=== PATIENT | male | born 1935 | race Caucasian/White ===

== ENCOUNTER 2016-10-28 09:07 | Observation (INO) | payer MEDICARE ==
[~2016-10-28] VITALS: Ht 177.8 cm; Wt 70.3 kg
[2016-10-28] VITALS (12 sets, daily range): BP systolic 99–132; BP diastolic 59–92; PULSE 44–66; RESP 16–18; TEMP 97.5–97.7; O2SAT 97–99
[~2016-10-28 09:07] MED LIST: ASPI81TA45 PO; ATEN-102 PO; CLOP75TA PO; OXYC-360 PO; Z.0.UNKNOWN
[2016-10-28] MEDS ORDERED: SODIUM CHLORIDE 0.9% FLUSH 5 ML FLUSH IVF PRN ×2 (09:30→11:45)
[2016-10-28] MEDS ORDERED: ATEN50TA PO (09:39)
[2016-10-28] MEDS ORDERED: LISI10TA3 PO (09:39)
[2016-10-28] MEDS ORDERED: ZANT150T2 PO (09:39)
[2016-10-28] MEDS ORDERED: LOPE2CAP PO (09:39)
[2016-10-28] MEDS ORDERED: LIPI10TA PO (09:39)
[2016-10-28] MEDS ORDERED: ASPI325T PO (09:39)
[2016-10-28 09:56] LABS: AUTOMATED NEUTROPHIL # 2.3 TH/MM3 (1.8-7.7); BASOPHIL % 0.5 % (0.0-2.0); EOSINOPHIL # 0.2 TH/MM3 (0-0.4); HEMATOCRIT 43.9 % (39.0-51.0); HEMO FLAGS DIFF FINAL; LYMPH % 24.8 % (9.0-44.0); LYMPHOCYTE # 1.1 TH/MM3 (1.0-4.8); MEAN CELL VOLUME 98.4 FL (80.0-100.0); MEAN CORPUSCULAR HEMOGLOBIN 32.5 PG (27.0-34.0); MONO % 19.5 % (0.0-8.0); NEUT % 51.2 % (16.0-70.0); PLATELET COUNT 197 TH/MM3 (150-450); RED BLOOD COUNT 4.47 MIL/MM3 (4.50-5.90); RED CELL DISTRIBUTION WIDTH 12.6 % (11.6-17.2); WHITE BLOOD COUNT 4.5 TH/MM3 (4.0-11.0)
--- NOTE | 2016-10-28 10:04 | RADHPO ---
EXAM DATE/TIME: 10/28/2016 09:32 [facility] COMPARISON: No previous studies available for comparison. INDICATIONS : Chest & epigastric pain. MEDICAL HISTORY : Hypertension. Hypercholesterolemia. Carcinoma, colon. Chemotherapy. CAD. GERD. SURGICAL HISTORY : Colon resection. Appendectomy. Right knee. Cardiac stents. ENCOUNTER: Initial ACUITY: 1 week PAIN SCORE: 5/10 LOCATION: chest FINDINGS: A single view of the chest demonstrates the lungs to be symmetrically aerated without evidence of mas s, infiltrate or effusion. The cardiomediastinal contours are unremarkable. Osseous structures are intact. CONCLUSION: No acute disease. Angy Boyer MD on October 28, 2016 at 10:02 Board Certified Radiologist. This report was verified electronically.
[2016-10-28 10:08] LABS: APTT (PATIENT) 27.6 SEC (24.3-30.1); PROTHROMBIN TIME - PATIENT 11.4 SEC (9.8-11.6)
[2016-10-28 10:13] LABS: BICARBONATE 27.8 MEQ/L (21.0-32.0); BLOOD UREA NITROGEN 18 MG/DL (7-18); MAGNESIUM 2.1 MG/DL (1.5-2.5)
[2016-10-28 10:16] LABS: GLOMERULAR FILTRATION RATE 64 ML/MIN (>89)
[2016-10-28 10:17] LABS: ANION GAP 7 MEQ/L (5-15); CHLORIDE 105 MEQ/L (98-107); POTASSIUM 3.9 MEQ/L (3.5-5.1); SODIUM (NA) 140 MEQ/L (136-145)
[2016-10-28 10:18] LABS: TOTAL BILIRUBIN ADULT 1.5 MG/DL (0.2-1.0)
[2016-10-28 10:19] LABS: ALKALINE PHOSPHATASE 60 U/L (45-117); ALT (GPT) 13 U/L (12-78)
[2016-10-28 10:24] LABS: AST (GOT) 15 U/L (15-37)
--- NOTE | 2016-10-28 10:26 | PD ---
HPI Chief Complaint: Abdominal Pain Time Seen by Provider: 09:17 Travel History International Travel<30 days: No Contact w/Intl Traveler<30days: No Traveled to known affect area: No History of Present Illness HPI 81-year-old male states he's been having upper abdominal pain over the past about week and so after being placed on ranitidine a couple years ago for a chronic cough and possible reflux he decided to stop his full dose aspirin a couple days ago. He states he feels lightheaded and nauseous and denies other concurrent complaints other than chronic diarrhea which she's had after his colon surgery. He states he's had cardiac stents 5 years ago and symptoms feel similar to that as he never really had chest pain he just felt lightheaded and didn't feel right. He states he hasn't had a workup to check for his stents in the past couple years. He states the pain feels like a pressure. Severity is moderate. 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 He denies prior issues in regards to his colon surgery since he had it back in the s. PFSH Past Medical History Cancer: Yes Cardiac Catheterization: Yes Cardiovascular Problems: Yes (STENTS) High Cholesterol: Yes Chemotherapy: Yes Coronary Artery Disease: Yes Diminished Hearing: Yes ([place]) GERD: Yes Hypertension: Yes Immunizations Current: Yes Radiation Therapy: No Tetanus Vaccination: < 5 Years Past Surgical History Abdominal Surgery: Yes (HALF OF COLON REMOVED DUE TO CA WITH RESECTION. ) Appendectomy: Yes Coronary Stent: Yes (X 3) Other Surgery: Yes (colon resection and rectal surgery r/t cancer) Social History Alcohol Use: Yes (RARE) Tobacco Use: No Substance Use: No Allergies-Medications (Allergen,Severity, Reaction): Coded Allergies: No Known Allergies (Unverified , 10/28/16) Reported Meds & Prescriptions Reported Meds & Active Scripts Active Reported Zantac (Ranitidine HCl) 150 Mg Tab 150 Mg PO DAILY Loperamide (Loperamide HCl) 2 Mg Cap 2 Mg PO DIRECTED One capsule after each loose stool. Not to exceed 8 capsules per day. Lisinopril 10 Mg Tab 10 Mg PO DAILY Lipitor (Atorvastatin Calcium) 10 Mg Tab 10 Mg PO HS Atenolol 50 Mg Tab 50 Mg PO DAILY Aspirin 325 Mg Tab 325 Mg PO DAILY Review of Systems Except as stated in HPI: all other systems reviewed are Neg Physical Exam Narrative GENERAL: Well-nourished, well-developed patient. SKIN: Warm and dry. HEAD: Normocephalic and atraumatic. EYES: No injection or drainage. ENT: No nasal drainage noted. NECK: Supple, trachea midline. CARDIOVASCULAR: Regular rate and rhythm RESPIRATORY: Breath sounds equal bilaterally. No accessory muscle use. GASTROINTESTINAL: Abdomen soft, tender in epigastric area, nondistended. EXTREMITIES: No edema. NEUROLOGICAL: Awake and alert. Motor and sensory grossly within normal limits. Normal speech Data Data Last Documented VS Vital Signs Date Time Temp Pulse Resp B/P Pulse Ox O2 Delivery O2 Flow Rate FiO2 10/28/16 11:30 16 10/28/16 11:30 49 112/64 97 Room Air 10/28/16 09:14 97.7 Orders Complete Blood Count With Diff (10/28/16 09:18) Comprehensive Metabolic Panel (10/28/16 09:18) Urinalysis - C+S If Indicated (10/28/16 09:18) Lipase (10/28/16 09:18) Ct Abd/Pel W Iv Contrast(Rout) (10/28/16 ) Iv Access Insert/Monitor (10/28/16 09:18) Electrocardiogram (10/28/16 09:18) Ckmb (Isoenzyme) Profile (10/28/16 09:18) Magnesium (Mg) (10/28/16 09:18) Prothrombin Time / Inr (Pt) (10/28/16 09:18) Act Partial Throm Time (Ptt) (10/28/16 09:18) Troponin I (10/28/16 09:18) Chest, Single Ap (10/28/16 09:18) Ecg Monitoring (10/28/16 09:18) Bilateral Bp Monitoring (10/28/16 09:18) Oximetry (10/28/16 09:18) Sodium Chloride 0.9% Flush (Ns Flush) (10/28/16 09:30) Iohexol 350 Inj (Omnipaque 350 Inj) (10/28/16 10:47) Aspirin Ec (Ecotrin Ec) (10/28/16 11:30) Admit Order (Ed Use Only) (10/28/16 11:38) Diet Npo (10/28/16 Lunch) Labs Laboratory Tests Test 10/28/16 09:45 White Blood Count 4.5 TH/MM3 Red Blood Count 4.47 MIL/MM3 Hemoglobin 14.5 GM/DL Hematocrit 43.9 % Mean Corpuscular Volume 98.4 FL Mean Corpuscular Hemoglobin 32.5 PG Mean Corpuscular Hemoglobin 33.0 % Concent Red Cell Distribution Width 12.6 % Platelet Count 197 TH/MM3 Mean Platelet Volume 7.3 FL Neutrophils (%) (Auto) 51.2 % Lymphocytes (%) (Auto) 24.8 % Monocytes (%) (Auto) 19.5 % Eosinophils (%) (Auto) 4.0 % Basophils (%) (Auto) 0.5 % Neutrophils # (Auto) 2.3 TH/MM3 Lymphocytes # (Auto) 1.1 TH/MM3 Monocytes # (Auto) 0.9 TH/MM3 Eosinophils # (Auto) 0.2 TH/MM3 Basophils # (Auto) 0.0 TH/MM3 CBC Comment DIFF FINAL Differential Comment Prothrombin Time 11.4 SEC Prothromb Time International 1.0 RATIO Ratio Activated Partial 27.6 SEC Thromboplast Time Sodium Level 140 MEQ/L Potassium Level 3.9 MEQ/L Chloride Level 105 MEQ/L Carbon Dioxide Level 27.8 MEQ/L Anion Gap 7 MEQ/L Blood Urea Nitrogen 18 MG/DL Creatinine 1.10 MG/DL Estimat Glomerular Filtration 64 ML/MIN Rate Random Glucose 98 MG/DL Calcium Level 8.3 MG/DL Magnesium Level 2.1 MG/DL Total Bilirubin 1.5 MG/DL Aspartate Amino Transf 15 U/L (AST/SGOT) Alanine Aminotransferase 13 U/L (ALT/SGPT) Alkaline Phosphatase 60 U/L Total Creatine Kinase 47 U/L Troponin I 0.03 NG/ML Total Protein 6.6 GM/DL Albumin 3.4 GM/DL Lipase 122 U/L [facility] Medical Decision Making Medical Screen Exam Complete: Yes Emergency Medical Condition: Yes Medical Record Reviewed: Yes (past history confirmed) Interpretation(s) EKG is sinus bradycardia at [address] segment elevation or depression or consecutive T-wave inversion CBC & BMP Diagram 10/28/16 09:45 Last 24 hours Impressions Chest X-Ray 10/28/16917 Signed Impressions: Service Date/Time: Friday, October 28, 2016 09:32 - CONCLUSION: No acute disease. Angy Boyer MD Abdomen/Pelvis CT 10/28/16 0000 Signed Impressions: Service Date/Time: Friday, October 28, 2016 10:42 - CONCLUSION: 1. Status post previous bowel surgery with resection and anastomosis at the rectosigmoid junction. The anastomosis appears to be intact. No definite mechanical obstruction. Possible mild ileus of the small bowel. 2. Questionable 2 mm nonobstructing stone mid pole right kidney. 3. Bilateral benign renal cysts. 4. Tiny 3 mm right lower lung pulmonary nodule. 5. Gallstones in the gallbladder. No biliary tract obstruction. Tito John MD Differential Diagnosis SD, gastritis, perforated ulcer, cholecystitis, pancreatitis, musculoskeletal... Narrative Course Will check blood work, EKG, chest x-ray, CT abdomen and reevaluate ed workup with gallstones without cholecystitis pain is located more over epigastric area and not right upper quadrant, patient can have this followed as an outpatient. Given he has been off of his aspirin and he states his lightheaded feeling feels like prior cardiac event that required stenting, will place in chest pain center for observation. If this is negative he can follow- up outpatient for GI and general surgery referral. He agrees to this Physician Communication Physician Communication dr valdez states to keep npo and agrees to admit Diagnosis Primary Impression: Lightheaded Additional Impressions: Abdominal pain Qualified Code: R10.13 - Epigastric pain Gallstone Qualified Code: K80.20 - Calculus of gallbladder without cholecystitis without obstruction H/O heart artery stent Admitting Information Admitting Physician Requests: Observation Aura Baker MD Oct 28, 2016 10:25
[2016-10-28 10:29] LABS: CREATINE KINASE 47 U/L (39-308)
[2016-10-28] MEDS ORDERED: IOHEXOL 350 MG/ML 10 ML VIAL (for RAD DIAG) IV ONE (10:47)
--- NOTE | 2016-10-28 11:08 | RADHPO ---
EXAM DATE/TIME: 10/28/2016 10:42 [facility] COMPARISON: No previous studies available for comparison. INDICATIONS : Mid abdominal pain with nausea and vomiting for one week. IV CONTRAST: 75 cc Omnipaque 350 (iohexol) IV ORAL CONTRAST: No oral contrast ingested. RADIATION DOSE: 9.20 CTDIvol (mGy) MEDICAL HISTORY : Cardiovascular disease. Hypertension. Carcinoma, colon. SURGICAL HISTORY : Coronary artery stent. Appendectomy.Partial colectomy with resection. Orthopedic surgery. ENCOUNTER: Initial ACUITY: 1 week PAIN SCALE: 3/10 LOCATION: abdomen/pelvis TECHNIQUE: Volumetric scanning of the abdomen and pelvis was performed. Using automated exposure control and ad justment of the mA and/or kV according to patient size, radiation dose was kept as low as reasonably achievable to obtain optimal diagnostic quality images. FINDINGS: LOWER LUNGS: Tiny 3 mm pulmonary nodule right lung base. Left lung bases clear. LIVER: Homogeneous density without lesion. There is no dilation of the biliary tree. Multiple gallstones in the gallbladder. No thickening of the gallbladder wall. No fluid around the gallbladder.. SPLEEN: Normal size without lesion. PANCREAS: Within normal limits. KIDNEYS: Normal in size and shape. There is no mass or hydronephrosis. There is a 3.2 cm benign appearing cys t mid pole right kidney. There is a 1.8 cm benign appearing cyst lower pole left kidney. Possible tin y nonobstructing 2 mm stone mid pole right kidney. ADRENAL GLANDS: Within normal limits. VASCULAR: There is no aortic aneurysm. Atherosclerotic changes. BOWEL/MESENTERY: There is evidence of previous abdominal surgery with bowel resection. There appears to be anastomosis at the rectosigmoid junction. The anastomosis appears to be grossly intact. There is a few loops of nonspecific small bowel with some fluid and some air. No definite mechanical obstruction is demonstra juan. No free air is seen. No free fluid or loculated fluid collections are demonstrated. ABDOMINAL WALL: Within normal limits. RETROPERITONEUM: There is no lymphadenopathy. BLADDER: No wall thickening or mass. REPRODUCTIVE: Within normal limits. INGUINAL: There is no lymphadenopathy or hernia. MUSCULOSKELETAL: Primary degenerative changes of the lumbar spine and pelvis. CONCLUSION: 1. Status post previous bowel surgery with resection and anastomosis at the rectosigmoid junction. Th e anastomosis appears to be intact. No definite mechanical obstruction. Possible mild ileus of the sm all bowel. 2. Questionable 2 mm nonobstructing stone mid pole right kidney. 3. Bilateral benign renal cysts. 4. Tiny 3 mm right lower lung pulmonary nodule. 5. Gallstones in the gallbladder. No biliary tract obstruction. Tito John MD on October 28, 2016 at 10:55 Board Certified Radiologist. This report was verified electronically.
[2016-10-28] MEDS ORDERED: ASPIRIN EC 325 MG TABEC PO ONE (11:30)
[2016-10-28] MEDS ORDERED: ACETAMINOPHEN 500 MG CPLT PO PRN (11:45)
[2016-10-28] MEDS ORDERED: NITROGLYCERIN 0.4 MG SL 25 TABS/BTL SL PRN (11:45)
[2016-10-28] MEDS ORDERED: ONDANSETRON HCL 4 MG/2 ML VIAL IV PRN (11:45)
[2016-10-28 14:52] LABS: BLOOD, URINE SMALL (NEG); GLUCOSE,URINE NEG (NEG); KETONE, URINE TRACE mg/dL (NEG); NITRITE,URINE NEG (NEG); PH, URINE 5.5 (5.0-8.5)
[2016-10-28 15:05] LABS: CALCIUM OXALATE CRYSTALS,URINE OCC /hpf; COMMENT (UR) CULT NOT INDICATED; CULTURE IF INDICATED CULT NOT INDICATED; METHOD OF COLLECTION CLEAN CATCH; RBC, URINE 0-3 /hpf (0-3); SQUAMOUS EPITHELIAL CELL URINE 0-5 /hpf (0-5); URINE COLOR YELLOW (YELLW/STRAW)
--- NOTE | 2016-10-28 15:52 | HHI.HP ---
[facility] Service [facility] Primary Care Physician Non-Staff Admission Diagnosis upper abdominal pain, lightheaded Diagnoses: (1) Lightheaded Diagnosis: Principal (2) Abdominal pain Diagnosis: Principal (3) Hypertension Diagnosis: Secondary (4) Hyperlipidemia Diagnosis: Secondary (5) Coronary artery disease Diagnosis: Secondary Chief Complaint: Abdominal pain Travel History International Travel<30 Days: No Contact w/Intl Traveler <30 Da: No Traveled to Known Affected Are: No History of Present Illness 81 year-old male with known history of hypertension, hyperlipidemia, coronary artery disease, history colon cancer who presented to hospital because 1 month history of abdominal pain. Patient states that last month he has been have been bilateral lower quadrant abdominal pain which appears to be worse in the morning and does improve throughout the afternoon. He indicates that his bowel movements have been the same ever since he had surgery for colon cancer. He usually has a normal bowel movement morning and then that consistency just softer throughout the day. He usually has 2-3 bowel movements daily. Because he has been having persistent pain over the last month he came to the ER for evaluation. Patient had workup to include laboratory studies which were normal. CT scan done of his abdomen which shows previous bowel surgery with resection and anastomosis. Possible mild ileus of the small bowel. There is gallstones in the gallbladder without any biliary tract obstruction. The patient does take a proton pump inhibitor at home without any significant improvement. He thought he may have ulcer development so he stopped taking his daily aspirin. The patient did mention to the ER physician that he has had some lightheaded dizziness mainly when standing up. When questioned about that he indicates that that is same symptoms he had when he underwent cardiac catheterization and found to have coronary artery disease with stenting 5 years ago. Patient denies any chest pain, nausea, vomiting, diaphoresis, shortness of breath or dyspnea. Because the patient has stopped taking his aspirin he is having similar symptoms when he had coronary artery disease as recommended by the ER physician the patient be observed and chest pain center for further evaluation and management. Review of Systems Constitutional: COMPLAINS OF: Dizziness, DENIES: Diaphoretic episodes, Fatigue , Fever, Weight gain, Weight loss, Chills, Change in appetite, Night Sweats Eyes: DENIES: Blurred vision, Diplopia, Eye inflammation, Eye pain, Vision loss , Photosensitivity, Double Vision Ears, nose, mouth, throat: DENIES: Vertigo, Nasal discharge, Throat pain, Ear Pain, Running Nose, Sinus Pain Respiratory: DENIES: Apneas, Cough, Snoring, Wheezing, Hemoptysis, Sputum production, Shortness of breath Cardiovascular: DENIES: Chest pain, Palpitations, Syncope, Dyspnea on Exertion , Lower Extremity Edema, Orthopnea Gastrointestinal: COMPLAINS OF: Abdominal pain, DENIES: Black stools, Bloody stools, Constipation, Diarrhea, Nausea, Vomiting, Difficulty Swallowing, Anorexia Neurologic: DENIES: Abnormal gait, Headache, Localized weakness, Paresthesias, Seizures, Speech Problems, Tremor, Poor Balance Psychiatric: DENIES: Anxiety, Confusion, Mood changes, Depression Past Family Social History Past Medical History Hypertension Hyperlipidemia neck sign coronary disease History colon cancer Chronic abdominal pain Past Surgical History Colon resection with anastomosis Right knee surgery Cardiac catheterization with stenting Reported Medications Reported Meds & Active Scripts Active Reported Zantac (Ranitidine HCl) 150 Mg Tab 150 Mg PO DAILY Loperamide (Loperamide HCl) 2 Mg Cap 2 Mg PO DIRECTED One capsule after each loose stool. Not to exceed 8 capsules per day. Lisinopril 10 Mg Tab 10 Mg PO DAILY Lipitor (Atorvastatin Calcium) 10 Mg Tab 10 Mg PO HS Atenolol 50 Mg Tab 50 Mg PO DAILY Aspirin 325 Mg Tab 325 Mg PO DAILY Allergies: Coded Allergies: No Known Allergies (Unverified , 10/28/16) Family History Reviewed and significant for mother and father with good health. However brother at age 23 from heart attack Social History Patient denies any tobacco or illicit drugs. Does use alcohol rarely Physical Exam Vital Signs Vital Signs Date Time Temp Pulse Resp B/P Pulse Ox O2 Delivery O2 Flow Rate FiO2 10/28/16 14:30 48 16 105/66 99 Room Air 10/28/16 13:30 47 16 109/63 99 Room Air 10/28/16 13:30 16 10/28/16 12:30 46 16 113/68 99 Room Air 10/28/16 12:00 44 16 125/61 99 Room Air 10/28/16 11:30 16 10/28/16 11:30 49 16 112/64 97 Room Air 10/28/16 10:36 46 16 132/79 10/28/16 09:42 45 16 128/92 Room Air 132/79 10/28/16 09:40 16 97 Room Air 10/28/16 09:28 16 10/28/16 09:14 97.7 48 16 128/76 99 Physical Exam GENERAL: Well-developed, well-nourished, in no acute distress. alert and orientated HEENT: Head is normocephalic without any lesions or masses noted. Facial features are symmetric. Eyes: Pupils equal round reactive to light. Extraocular muscles are intact. Conjunctivae were clear. Oropharyngeal: Pharynx without any erythema edema. Tongue is midline without deviation. Buccal mucosa is moist without any masses or lesions NECK: Supple without any masses. Trachea midline no deviation. No JVD, no bruits are appreciated CARDIAC: Regular rhythm, regular rate. S1/S2 are heard. No murmurs gallops or rubs. LUNGS: Clear to auscultation bilaterally. No wheeze, rhonchi or rales. No use of accessory muscles on inspiration or expiration. ABDOMEN: Soft, nontender. Nondistended. Bowel sounds heard in all 4 quadrants. No organomegaly or masses. Negative rebound, negative guarding EXTREMITIES: No edema, pulses are equal bilaterally. No cyanosis or clubbing NEUROLOGY: Mood and affect appear appropriate. Cranial nerves II through XII grossly intact. Muscle strength 5/5 in upper and lower extremities bilaterally. Deep tendon reflexes are 2+ in upper and lower extremities bilaterally. Laboratory Laboratory Tests Test 10/28/16 10/28/16 10/28/16 09:45 12:40 14:30 White Blood Count 4.5 Red Blood Count 4.47 Hemoglobin 14.5 Hematocrit 43.9 Mean Corpuscular Volume 98.4 Mean Corpuscular Hemoglobin 32.5 Mean Corpuscular Hemoglobin 33.0 Concent Red Cell Distribution Width 12.6 Platelet Count 197 Mean Platelet Volume 7.3 Neutrophils (%) (Auto) 51.2 Lymphocytes (%) (Auto) 24.8 Monocytes (%) (Auto) 19.5 Eosinophils (%) (Auto) 4.0 Basophils (%) (Auto) 0.5 Neutrophils # (Auto) 2.3 Lymphocytes # (Auto) 1.1 Monocytes # (Auto) 0.9 Eosinophils # (Auto) 0.2 Basophils # (Auto) 0.0 CBC Comment DIFF FINAL Differential Comment Prothrombin Time 11.4 Prothromb Time International 1.0 Ratio Activated Partial 27.6 Thromboplast Time Sodium Level 140 Potassium Level 3.9 Chloride Level 105 Carbon Dioxide Level 27.8 Anion Gap 7 Blood Urea Nitrogen 18 Creatinine 1.10 Estimat Glomerular Filtration 64 Rate Random Glucose 98 Calcium Level 8.3 Magnesium Level 2.1 Total Bilirubin 1.5 Aspartate Amino Transf 15 (AST/SGOT) Alanine Aminotransferase 13 (ALT/SGPT) Alkaline Phosphatase 60 Total Creatine Kinase 47 44 Troponin I 0.03 0.03 Total Protein 6.6 Albumin 3.4 Lipase 122 Urine Collection Type CLEAN CATCH Urine Color YELLOW Urine Turbidity CLEAR Urine pH 5.5 Urine Specific [place] 1.030 Urine Protein NEG Urine Glucose (UA) NEG Urine Ketones TRACE Urine Occult Blood SMALL Urine Nitrite NEG Urine Bilirubin NEG Urine Leukocyte Esterase NEG Urine RBC 0-3 Urine Squamous Epithelial 0-5 Cells Urine Calcium Oxalate Crystals OCC Microscopic Urinalysis Comment CULT NOT INDICATED Urine Collection Time 14:30 Result Diagram: 10/28/16 0945 10/28/1645 Imaging Last Impressions Chest X-Ray 10/28/1618 Signed Impressions: Service Date/Time: Friday, October 28, 2016 09:32 - CONCLUSION: No acute disease. Angy Boyer MD Abdomen/Pelvis CT 10/28/16 0000 Signed Impressions: Service Date/Time: Friday, October 28, 2016 10:42 - CONCLUSION: 1. Status post previous bowel surgery with resection and anastomosis at the rectosigmoid junction. The anastomosis appears to be intact. No definite mechanical obstruction. Possible mild ileus of the small bowel. 2. Questionable 2 mm nonobstructing stone mid pole right kidney. 3. Bilateral benign renal cysts. 4. Tiny 3 mm right lower lung pulmonary nodule. 5. Gallstones in the gallbladder. No biliary tract obstruction. Tito John MD Assessment and Plan Assessment and Plan Lightheaded, possible component of coronary artery disease Patient with increased risk factors include age, hypertension, hyperlipidemia, coronary artery disease with similar symptoms when he experienced his previous cardiac catheterizations Serial cardiac enzymes reviewed by myself which without any acute coronary event Serial EKG shows first-degree AV block without any changes Nuclear stress test was performed today, no signs of ischemia Continue aspirin and nitroglycerin as needed --Reduce to Atenolol 25 mg daily, because of HR in the 40 and could be the etiology of the patients lightheadedness Abdominal pain, chronic CT scan does show multiple abnormalities to include possible mild ileus and small bowel, gallstones, nonobstructing kidney stones Discuss with patient to follow-up with outpatient imaging scheduler if continues to worsen Hypertension, coronary artery disease, hyperlipidemia Continue home medications DVT prevention Sequential compression devices Written by Ray Graham PA-C, acting as scribe for Dr. Paez on 10/28/16 at 1905. The documentation accurately reflects the work and decisions performed face-to- face by Dr. Paez on 10/28/16 at 1905. Discharge disposition Discharge home in stable addition if stress test is negative Activity: Ad stacy. Diet: Healthy heart diet Medications per medication reconciliation Follow-up primary medical doctor in one week Problem Qualifiers (1) Abdominal pain: Qualified Code: R10.30 - Lower abdominal pain (2) Hypertension: Qualified Code: I15.9 - Secondary hypertension (3) Hyperlipidemia: Qualified Code: E78.5 - Hyperlipidemia, unspecified hyperlipidemia type (4) Coronary artery disease: Qualified Code: I25.10 - Coronary artery disease, angina presence unspecified, unspecified vessel or lesion type, unspecified whether [place] or transplanted heart Ray Graham Oct 28, 2016 15:52
[2016-10-28] MEDS ORDERED: REGADENOSON INJ 0.4 MG/5 ML SYR IV ONE (16:23)
--- NOTE | 2016-10-28 17:19 | RADHPO ---
EXAM DATE/TIME: 10/28/2016 16:34 [facility] COMPARISON: No previous studies available for comparison. INDICATIONS : Chest pressue for 1 day. Angina. Coronary artery disease. DOSE: 25.6 mCi Tc99m Myoview at stress. 8.1 mCi Tc99m Myoview at rest. 0.4 mg Lexiscan STRESS SYMPTOMS: Headache. EJECTION FRACTION: > 70% MEDICAL HISTORY : Carcinoma, colon. Hypertension. SURGICAL HISTORY : Appendectomy. Coronary artery stent. Colon resection. ENCOUNTER: Initial ACUITY: 1 day PAIN SCALE: 3/10 LOCATION: Bilateral chest TECHNIQUE: The patient underwent pharmacologic stress with infusion of prescribed dose. Continuous ECG tracing was monitored during stress. Gated SPECT imaging was performed after stress and conventional SPECT i maging was performed at rest. The examination was performed on a SPECT/CT scanner, both attenuation and non-corrected datasets were reviewed. FINDINGS: The best perfused myocardium is the septum and anterior wall. There are no fixed defects to suggest infarction. There is no redistribution cysts ischemia. The ejection fraction is greater than 70%. CONCLUSION: Negative for stress-induced ischemia. RISK CATEGORY: Low (<1% Annual Mortality Rate) Kenyon Donovan MD FACR on October 28, 2016 at 17:15 Board Certified Radiologist. This report was verified electronically.
[2016-10-28] MEDS ORDERED: ATEN25TA PO (18:32)
--- NOTE | 2016-10-28 18:32 | HHI.DCPOC ---
Discharge Care Plan Diagnosis: (1) Lightheaded (2) Abdominal pain Goals to Promote Your Health * To prevent worsening of your condition and complications * To maintain your health at the optimal level Directions to Meet Your Goals Take your medications as prescribed Follow your dietary instruction Follow activity as directed Keep your appointments as scheduled Take your immunizations and boosters as scheduled If your symptoms worsen call your PCP, if no PCP go to Urgent Care Center or Emergency Room Smoking is Dangerous to Your Health. Avoid second hand smoke Call the 24-hour hour crisis hotline for domestic abuse at Ray Graham Oct 28, 2016 18:32
[2016-10-28] MEDS ORDERED: FAMOTIDINE 20 MG TAB PO SCH (21:00)
[2016-10-28] MEDS ORDERED: SODIUM CHLORIDE 0.9% FLUSH 5 ML FLUSH IVF SCH (21:00)
[2016-10-29] MEDS ORDERED: ASPIRIN 325 MG TAB PO SCH (09:00)
--- NOTE | 2016-10-29 21:15 | EKG ---
Date Performed: 10/28/2016 Time Performed: 15:52:18 PTAGE: 81 years EKG: Sinus bradycardia with sinus arrhythmia with 1st degree A-V block Prolonged QT interval Lef t axis deviation Possible septal infarct - age undetermined Abnormal ECG PREVIOUS TRACING : 10/28/2016 12.47 DOCTOR: Eduardo Brenner Interpretating Date/Time 10/29/2016 21:07:14
--- NOTE | 2016-10-29 21:22 | EKG ---
Date Performed: 10/28/2016 Time Performed: 12:47:20 PTAGE: 81 years EKG: Sinus bradycardia with 1st degree A-V block Leftward axis Abnormal ECG PREVIOUS TRACING : 10/28/2016 09.54 DOCTOR: Eduardo Brenner Interpretating Date/Time 10/29/2016 21:10:57
--- NOTE | 2016-10-29 21:28 | EKG ---
Date Performed: 10/28/2016 Time Performed: 09:54:48 PTAGE: 81 years EKG: Sinus bradycardia with 1st degree A-V block Left axis deviation Abnormal ECG NO PREVIOUS TRACING DOCTOR: Eduardo Brenner Interpretating Date/Time 10/29/2016 21:13:58
--- NOTE | 2016-10-30 16:05 | TR ---
Date Performed: 10/28/2016 Time Performed: 16:35:26 DOCTOR: Tiffany Perdomo DRUG LIST: CLINICAL HISTORY: CHEST PAIN REASON FOR TEST: Chest pain. REASON FOR ENDING: OBSERVATION: CONCLUSION: Lexiscan stress test was performed under standard four minute protocol. Radionuclid e was injected one minute prior to ending the test. No electrocardiographic abormalities were present to suggest ischemia. Nuclear imaging and interpretation are pending. COMMENTS:
== END 2016-10-28 19:58 | disposition home or self-care (01) ==
LOC: PHED 09:07 → PHEDA 11:39 → PH3B 16:13
PROVIDERS: ADMIT Family Medicine; ATTEND Family Medicine
DX: R10.10 Upper abdominal pain, unspecified (principal); I25.10 Atherosclerotic heart disease of native coronary artery without angina pectoris; I10 Essential (primary) hypertension; R05 Cough; R11.0 Nausea; R42 Dizziness and giddiness; E78.00 Pure hypercholesterolemia, unspecified; K21.9 Gastro-esophageal reflux disease without esophagitis; Z79.899 Other long term (current) drug therapy; N28.1 Cyst of kidney, acquired; R91.1 Solitary pulmonary nodule; K80.20 Calculus of gallbladder without cholecystitis without obstruction; E78.5 Hyperlipidemia, unspecified; Z85.038 Personal history of other malignant neoplasm of large intestine; I44.0 Atrioventricular block, first degree; R00.1 Bradycardia, unspecified
CPT/HCPCS: 71010; 74177; 78452; 80053; 81001; 82550; 83690; 83735; 84484; 85025; 85610; 85730; 93005; 93017; 99285; A9502; G0378; J2785; Q9967